=== PATIENT | male | born 1960 | race Caucasian/White ===

== ENCOUNTER 2018-08-21 05:41 | Emergency (ER) | payer MEDICAID, SELFPAY ==
[2018-08-21] VITALS (17 sets, daily range): BP systolic 145–173; BP diastolic 80–100; PULSE 57–75; RESP 12–23; TEMP 36.6; O2SAT 94–100
--- NOTE | 2018-08-21 05:54 | DI.CT_ITS ---
SYMPTOM/DIAGNOSIS: CHEST PAIN, HEMOPTYSIS PE CHEST CT: CT angiography was performed with multi slice acquisition and multi planar and 3D reconstruction. CT angiography of the chest was performed with a bolus infusion of 100 cc's of Omnipaque 350. Images obtained through the upper abdomen show unremarkable appearance of visualized portions of the liver, spleen, pancreas, adrenals and kidneys. No evidence of pulmonary embolic disease. No thoracic aortic aneurysm or dissection. No mediastinal or hilar adenopathy. Tracheobronchial tree appears intact except for slight peribronchial cuffing centrally. There is prominence of the septal lines, particularly in the lung bases. Scattered ground glass opacities are present, right greater than left, in the lung bases with a focus of possible consolidation seen posteriorly in the right lower lobe. The findings as described are suggestive of infectious process. No pleural effusion is seen. Underlying subpleural emphysema noted along with centrilobular mild emphysema. CONCLUSION: Nonspecific ground glass opacities but question consolidative opacities also present on the right. The findings may represent infectious process. Appropriate follow up studies requested. No evidence of pulmonary embolic disease.
--- NOTE | 2018-08-21 05:55 | W.ED.GENAD ---
Discharge Plan Disposition Patient Disposition: HOME Condition: Stable Discharge Details Chief Complaint: Chest Pain Clinical Impression: Chest pain, CAP (community acquired pneumonia) Primary Care Provider: Reji Waters ED Provider: Dennis Barajas Home Meds and New Rx's Prescriptions: New prednisone 20 mg tablet 60 mg PO DAILY 5 Days Qty: 15 RF: 0 levofloxacin 750 mg tablet 750 mg PO DAILY Qty: 6 RF: 0 Discharge Instructions Instructions: Community Acquired Pneumonia (ED) Additional Instructions: follow up with your primary care provider in a week especially if you are still symptomatic. You should discuss follow up imaging with your primary care provider of your chest if you feel you are more ill, have worsening trouble breathing or severe weakness return to the emergency department Medical Decision Making 57 yo male who denies chronic medical problems comes in with chief complaint of cough that started around 3am then developed anterior chest pain and states he had streaks of blood in his sputum. Went to bed feeling fine per pt. Denies recent travel or surgeries, no abd pain or fevers, denies hx of smoking and doesn't use drugs. He is HD stable, clera lungs on exam. will obtain lab work, heart score is 1, will send troponin. Given hemoptysis his wells score is moderate will obtain CTA to eval for pe vs pna. Normal vascular exam so doubt dissection and no tearing back pain pt's labs are unremarkable, remains hd stable. no pe on cta, has nonspecific peribronchial cuffing, grdounglass atentuation, and opacities in right lower lobe. Will tx as possible pna, states he now has had a cough for about a week. Did advise to f/u with pcp and have repeat imaging to make sure these findings to make sure these findings have resolved/not worsening and return precautions given Differential Diagnosis pna, pe, nstemi Medical Records Medical records reviewed: Yes I reviewed the patient's medical records. Imaging Data Radiologic Study: Attestation: I personally reviewed and interpreted this imaging study as follows: Imaging: CT Scan Radiologist's impression: 1. Nonspecific peribronchial cuffing. 2. Groundglass attenuation may reflect microatelectasis related to bronchial wall thickening.. 3. Septal thickening is present which suggests mild interstitial edema. 4. Ill-defined focal opacities noted on the right most prominent adjacent to the fissure in the superior segment of the right lower lobe. This may reflect an inflammatory focus. This measures up to approximately 2 cm . Lab Data Lab results reviewed: Yes I reviewed the patient's lab results. ECG Data Attestation: I personally reviewed and interpreted this ECG (s) as follows: Prior ECG tracings: not available for review Interpretation: sinus rhythm, rate of 60, pr 150, no acute st t wave ischemic changes HPI General Mode of arrival: ambulatory. Date/Time Provider Initiated Documentation: 08/21/18 05:44. Limitations to Documentation: no limitations. Information obtained by: patient. History of Present Illness 57 year old M presents to the emergency department with the chief complaint of cough, described as moderate, Quality is described as aching, and it has been constant. No relieving factors improve symptom(s), No exacerbating factors reported . Patient notes chest pain. Patient did receive the following treatments prior to arrival, none Related Data Home Medications Medication Instructions Recorded Confirmed levofloxacin 750 mg PO DAILY #6 tab 08/21/18 prednisone 60 mg PO DAILY 5 Days #15 tab 08/21/18 Previous Rx's Medication Instructions Recorded levofloxacin 750 mg PO DAILY #6 tab 08/21/18 prednisone 60 mg PO DAILY 5 Days #15 tab 08/21/18 Allergies Allergy/AdvReac Type Severity Reaction Status Date / Time aspirin Allergy Intermediate Hives Unverified 08/21/18 06:12 General Stated Complaint: Chest Pain MARIE: 2 Review of Systems Review of Systems All systems reviewed & are unremarkable except as noted in HPI and below Constitutional Denies chills, Denies fever(s) and Denies weakness Gastrointestinal Denies abdominal pain, Denies nausea and Denies vomiting Integumentary/Breasts Denies rash Neurologic Denies weakness [facility] Social History Smoking/Tobacco Use Status: Never Alcohol Intake: current Alcohol Intake frequency: 3 or more drinks per day Alcohol type: beer Drug use: Never Substance use type: does not use Do you feel safe at home: Yes Do you feel safe in your relationship?: Yes Exam Const General: no acute distress Orientation: alert HENMT Head: normal to inspection Ears: external ears normal General nose exam: external nose normal Mouth: moist mucous membranes Eyes General: appearance normal, both eyes and all related structures Neck Neck: normal visual inspection Resp Effort & Inspection: normal respiratory effort and able to speak in complete sentences Cardio Rate: regular rate Skin General skin exam: no rashes or lesions noted Neuro General: alert and oriented x3 Extrem General: normal to inspection Psych Mental Status: mental status grossly normal Course Vital Signs Temperature 36.6 C 08/21/18 05:47 Pulse 68 08/21/18 05:47 Respiratory Rate 08/21/18 05:47 Blood Pressure 158/96 H 08/21/18 05:47 Pulse Oximetry 97 08/21/18 05:47 Temperature 36.6 C 08/21/18 05:47 Temperature Source Skin 08/21/18 05:47 Pulse 68 08/21/18 05:47 Respiratory Rate 19 08/21/18 05:47 Blood Pressure 158/96 H 08/21/18 05:47 Blood Pressure Position Sitting 08/21/18 05:47 Pulse Oximetry 97 08/21/18 05:47 Oxygen Delivery Method Room Air 08/21/18 05:47 Oxygen Flow Rate 0 08/21/18 05:47
--- NOTE | 2018-08-21 05:58 | ED.GENADUL_ITS ---
Discharge Plan Disposition Patient Disposition: HOME Condition: Stable Discharge Details Chief Complaint: Chest Pain Clinical Impression: Chest pain, CAP (community acquired pneumonia) Primary Care Provider: Reji Waters ED Provider: Dennis Barajas Home Meds and New Rx's Prescriptions: New prednisone 20 mg tablet 60 mg PO DAILY 5 Days Qty: 15 RF: 0 levofloxacin 750 mg tablet 750 mg PO DAILY Qty: 6 RF: 0 Discharge Instructions Instructions: Community Acquired Pneumonia (ED) Additional Instructions: follow up with your primary care provider in a week especially if you are still symptomatic. You should discuss follow up imaging with your primary care provider of your chest if you feel you are more ill, have worsening trouble breathing or severe weakness return to the emergency department Medical Decision Making 57 yo male who denies chronic medical problems comes in with chief complaint of cough that started around 3am then developed anterior chest pain and states he had streaks of blood in his sputum. Went to bed feeling fine per pt. Denies recent travel or surgeries, no abd pain or fevers, denies hx of smoking and doesn't use drugs. He is HD stable, clera lungs on exam. will obtain lab work, heart score is 1, will send troponin. Given hemoptysis his wells score is moderate will obtain CTA to eval for pe vs pna. Normal vascular exam so doubt dissection and no tearing back pain pt's labs are unremarkable, remains hd stable. no pe on cta, has nonspecific peribronchial cuffing, grdounglass atentuation, and opacities in right lower lobe. Will tx as possible pna, states he now has had a cough for about a week. Did advise to f/u with pcp and have repeat imaging to make sure these findings to make sure these findings have resolved/not worsening and return precautions given Differential Diagnosis pna, pe, nstemi Medical Records Medical records reviewed: Yes I reviewed the patient's medical records. Imaging Data Radiologic Study: Attestation: I personally reviewed and interpreted this imaging study as follows: Imaging: CT Scan Radiologist's impression: 1. Nonspecific peribronchial cuffing. 2. Groundglass attenuation may reflect microatelectasis related to bronchial wall thickening.. 3. Septal thickening is present which suggests mild interstitial edema. 4. Ill-defined focal opacities noted on the right most prominent adjacent to the fissure in the superior segment of the right lower lobe. This may reflect an inflammatory focus. This measures up to approximately 2 cm . Lab Data Lab results reviewed: Yes I reviewed the patient's lab results. ECG Data Attestation: I personally reviewed and interpreted this ECG (s) as follows: Prior ECG tracings: not available for review Interpretation: sinus rhythm, rate of 60, pr 150, no acute st t wave ischemic changes HPI General Mode of arrival: ambulatory . Date/Time Provider Initiated Documentation: 08/21/18 05:44 . Limitations to Documentation: no limitations . Information obtained by: patient . History of Present Illness 57 year old M presents to the emergency department with the chief complaint of cough, described as moderate, Quality is described as aching, and it has been constant. No relieving factors improve symptom(s), No exacerbating factors reported . Patient notes chest pain. Patient did receive the following treatments prior to arrival, none Related Data Home Medications Medication Instructions Recorded Confirmed levofloxacin 750 mg PO DAILY #6 tab 08/21/18 prednisone 60 mg PO DAILY 5 Days #15 tab 08/21/18 Previous Rx's Medication Instructions Recorded levofloxacin 750 mg PO DAILY #6 tab 08/21/18 prednisone 60 mg PO DAILY 5 Days #15 tab 08/21/18 Allergies Allergy/AdvReac Type Severity Reaction Status Date / Time aspirin Allergy Intermediate Hives Unverified 08/21/18 06:12 General Stated Complaint: Chest Pain MARIE: 2 Review of Systems Review of Systems All systems reviewed & are unremarkable except as noted in HPI and below Constitutional Denies chills, Denies fever(s) and Denies weakness Gastrointestinal Denies abdominal pain, Denies nausea and Denies vomiting Integumentary/Breasts Denies rash Neurologic Denies weakness [facility] Social History Smoking/Tobacco Use Status: Never Alcohol Intake: current Alcohol Intake frequency: 3 or more drinks per day Alcohol type: beer Drug use: Never Substance use type: does not use Do you feel safe at home: Yes Do you feel safe in your relationship?: Yes Exam Const General: no acute distress Orientation: alert HENMT Head: normal to inspection Ears: external ears normal General nose exam: external nose normal Mouth: moist mucous membranes Eyes General: appearance normal, both eyes and all related structures Neck Neck: normal visual inspection Resp Effort & Inspection: normal respiratory effort and able to speak in complete sentences Cardio Rate: regular rate Skin General skin exam: no rashes or lesions noted Neuro General: alert and oriented x3 Extrem General: normal to inspection Psych Mental Status: mental status grossly normal Course Vital Signs Temperature 36.6 C 08/21/18 05:47 Pulse 68 08/21/18 05:47 Respiratory Rate 08/21/18 05:47 Blood Pressure 158/96 H 08/21/18 05:47 Pulse Oximetry 97 08/21/18 05:47 Temperature 36.6 C 08/21/18 05:47 Temperature Source Skin 08/21/18 05:47 Pulse 68 08/21/18 05:47 Respiratory Rate 19 08/21/18 05:47 Blood Pressure 158/96 H 08/21/18 05:47 Blood Pressure Position Sitting 08/21/18 05:47 Pulse Oximetry 97 08/21/18 05:47 Oxygen Delivery Method Room Air 08/21/18 05:47 Oxygen Flow Rate 0 08/21/18 05:47
[2018-08-21] MEDS: Ketorolac 15 MG/ML VIAL IVP (06:02)
[2018-08-21] MEDS: Normal Saline Flush 10 ML SYR IVP ×2 (06:02→06:35)
[2018-08-21 06:03] LABS: Abs Immature Grans 0.05 k/cumm (0.0-0.09); Absolute Basophil Count 0.04 k/cumm (0.0-0.2); Absolute Eosinophil Count 0.29 k/cumm (0.0-0.7); Absolute Lymphocyte Count 1.46 k/cumm (1.2-3.4); Absolute Monocyte Count 0.53 k/cumm (0.11-0.7); Absolute Neutrophil Count 4.78 k/cumm (1.2-6.7); Basophils % 0.6; Eosinophils % 4.1; HCT 42.5 % (40.0-50.0); HGB 14.3 g/dL (13.5-17.5); Immature Grans % 0.7; Lymphocytes % 20.4; Mean Corp. HGB Concentration 33.6 g/dL (32.0-36.0); Mean Corpuscular Hemoglobin 33.1 pg (27.0-33.0); Mean Corpuscular Volume 98.4 fL (80-95); Mean Platelet Volume 10.7 fL (8.0-11.0); Monocytes % 7.4; Neutrophils % 66.8; Platelet Count 256 x1000/uL (130-400); RBC 4.32 m/cumm (4.50-6.00); RBC Distribution Width 12.5 % (11.8-14.1); White Blood Cell Count 7.15 k/cumm (4.4-10.8)
[2018-08-21 06:17] LABS: INR 0.9 (0.9-1.1); PTT Activated 21.7 sec (21.0-31.4)
[2018-08-21 06:20] LABS: ALT 53 U/L (12-78); AST 35 U/L (15-37); Albumin 3.2 g/dL (3.4-5.0); Alkaline Phosphatase 74 U/L (46-116); Bilirubin, Total 0.6 mg/dL (0.2-1.0); Total Protein 6.8 g/dL (6.4-8.2)
[2018-08-21 06:28] LABS: ALT 55 U/L (12-78); AST 34 U/L (15-37); Albumin 3.2 g/dL (3.4-5.0); Alkaline Phosphatase 72 U/L (46-116); Anion Gap 8.3 mmol/L (3-11); BUN 16 mg/dL (7-18); Bilirubin, Total 0.5 mg/dL (0.2-1.0); CO2 25.7 mmol/L (21.0-32.0); CREATININE 1.07 mg/dL (0.70-1.30); Calcium 8.6 mg/dL (8.5-10.1); Chloride 106 mmol/L (98-107); Glucose 127 mg/dL (70-100); Magnesium 2.1 mg/dL (1.8-2.4); Sodium 140 mmol/L (136-145)
[2018-08-21 06:30] LABS: Bilirubin, Direct 0.12 mg/dL (0.00-0.20); Troponin I < 0.02 ng/mL (0.00-0.06)
[2018-08-21] MEDS: Omnipaque 350 MG/ML 100 ML BTL IJ (06:36)
--- NOTE | 2018-08-21 07:03 | DI.VRAD_ITS ---
EXAM: CT Angiography Chest With Contrast EXAM DATE/TIME: 08/21/2018 5:55 AM CLINICAL HISTORY: 57 years old, male; Pain and signs and symptoms; Type not specified; Patient HX: Chest pain with hemoptysis; Additional info: HX of RT lung pneumothorax in childhood/surgery TECHNIQUE: Imaging protocol: Axial computed tomographic angiography images of the chest with intravenous contrast using CT angiography protocol. Coronal and sagittal reformatted images were created and reviewed. 3D rendering: MIP reconstructed images were created and reviewed. Radiation optimization: All CT scans at this facility use at least one of these dose optimization techniques: automated exposure control; mA and/or kV adjustment per patient size (includes targeted exams where dose is matched to clinical indication); or iterative reconstruction. Contrast material: OMNI 350; Contrast volume: 100 ml; Contrast route: IV; COMPARISON: CR CHEST 2 VIEWS PA,LAT 05/08/2014 11:45 AM FINDINGS: Pulmonary arteries: There is no evidence for PE. Aorta: Normal. No aortic aneurysm. No aortic dissection. Lungs: Peribronchial cuffing is present which is nonspecific, and which may reflect acute or chronic bronchial inflammation. Alternatively, this may reflect an element of reactive airways disease. Groundglass attenuation may reflect microatelectasis related to bronchial wall thickening.. Septal thickening is present which suggests mild interstitial edema. Ill-defined focal opacities noted on the right most prominent adjacent to the fissure in the superior segment of the right lower lobe. This may reflect an inflammatory focus. This measures up to approximately 2 cm . Pleural space: Normal. No pneumothorax. No pleural effusion. Heart: Normal. No cardiomegaly. No pericardial effusion. Lymph nodes: Unremarkable. No enlarged lymph nodes. Bones/joints: Unremarkable. No acute fracture. Soft tissues: Unremarkable. IMPRESSION: 1. Nonspecific peribronchial cuffing. 2. Groundglass attenuation may reflect microatelectasis related to bronchial wall thickening.. 3. Septal thickening is present which suggests mild interstitial edema. 4. Ill-defined focal opacities noted on the right most prominent adjacent to the fissure in the superior segment of the right lower lobe. This may reflect an inflammatory focus. This measures up to approximately 2 cm . Dictated and Authenticated by: Emmanuel Alegria MD. Ordering:LUI Collins MD
== END 2018-08-21 07:27 | disposition home or self-care (01) ==
LOC: ER 07:29
PROVIDERS: Emergency Provider Emergency Medicine; PCP General Practice
DX: R07.9 Chest pain, unspecified (principal); J18.9 Pneumonia, unspecified organism; R05 Cough; R04.2 Hemoptysis
CPT/HCPCS: 36415; 71275; 80053; 80076; 93005; 96374; 99285; 83735; 84484; 85025; 85610; 85730; 93010; 99284; J1885; J3490

== ENCOUNTER 2019-06-22 09:10 | Emergency (ER) | payer MEDICAID, SELFPAY ==
[2019-06-22 09:15] VITALS: BP 117/91; PULSE 74; RESP 18; TEMP 36.2; O2SAT 97
--- NOTE | 2019-06-22 09:30 | DI.US_ITS ---
EXAM: US UPPER EXTREMITY VENOUS LT CLINICAL HISTORY: pain, swelling. r/o DVT. TECHNIQUE: Ultrasound examination of the left upper extremity venous system(s) is performed using gr ayscale, color-flow, and spectral Doppler analysis. COMPARISON: No exams were available for comparison FINDINGS: The left internal jugular, axillary, subclavian, cephalic, basilic, and brachial veins are patent wit hout evidence of thrombosis. IMPRESSION: No DVT. Findings were discussed with the emergency department on the date of the examination. DATA REPOSITORY:
--- NOTE | 2019-06-22 09:30 | DI.RAD_ITS ---
EXAM: XR ELBOW LT COMPLETE CLINICAL HISTORY: pain, medial epicondyl. TECHNIQUE: 2D digital imaging was performed. COMPARISON: No exams were available for comparison FINDINGS: BONES: No acute fracture is present. No bony destructive lesion is seen. There is a tiny well cortica eric density adjacent to the medial epicondyle likely reflecting old injury. JOINTS: The elbow is normally aligned. No joint effusion is seen. SOFT TISSUE: Normal. IMPRESSION: Unremarkable radiographs of the left elbow. DATA REPOSITORY: RADIATION DOSE DELIVERED:
--- NOTE | 2019-06-22 09:47 | ED.GENADUL_ITS ---
Discharge Plan Disposition Patient Disposition: HOME Condition: Stable Discharge Details Chief Complaint: Orthopedic Clinical Impression: Tendinitis, Epicondylitis elbow, medial Primary Care Provider: None,None ED Provider: Fariba Woodruff Home Meds and New Rx's Prescriptions: No Action ibuprofen 200 mg Tablet 600 mg PO Q6H PRNRF: 0 Discharge Instructions Instructions: Tendinitis (ED) Additional Instructions: Rest. Activities as tolerated. Elevate injury to prevent swelling. Ice massage to the area of discomfort for 15 min. 3-5 times daily. Use sling for 3 to 5 days. Consider forearm strap thereafter Motrin every 8 hours with food or Tylenol every 6 hours for soreness if needed over the counter for comfort. Followup with orthopedic doctor as discussed if not improving in one week. Follow-up with physical therapist locally Return for any worsening or concerns sooner if needed. Stand Alone Forms: Physical Therapy Referral Referrals: Aguilar Noble MD [ [facility] STAFF PHYSICIAN] - Discharge Data Discharge Date/Time-TO BE ENTERED AT DEPARTURE: 06/22/19 12:32 Medical Decision Making 58-year-old patient presenting to the emergency room with complaints of left arm pain. Patient reports 2 to 3 days of left arm pain which is difficult to tolerate. Patient denies a specific injury or trauma. No inciting events. 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 Patient denies any recent use however he will be required pain in the upcoming months and is quite concerned with developing pain for the last few days which is difficult to range his arm he is also reporting swelling present. Denies any numbness, tingling or weakness. Denies any neck pain. No other concerns or complaints at this time. On exam patient does have medial arm pain centered around the medial epicondyles. He does have tendon pain with palpation through the forearm. Pain with flexion and extension. Swelling is present. Given patient's moderate tenderness will check x-ray as well as ultrasound to be sure there is no associated DVT however I suspect tendinitis at this time. Ultrasound negative for DVT. X-ray no acute x-ray changes noted. Given patient's clinical presentation I feel medial epicondylitis associated with tendinitis is likely the etiology of his pain. Will recommend forearm strapping, rice, physical therapy and orthopedic follow-up if not improving with conservative treatments. Patient reports his understanding and agrees with plan of care. The patient was stable and requested discharge. Prior to discharge, my usual and customary return precautions were reviewed with the patient - this included follow-up instructions and reasons to return to the Emergency Department if conditions worsens, does not improve as expected, or other new concerns arise. HPI General Date/Time Provider Initiated Documentation: 06/22/19 09:34 . HPI Narrative: This is a 58-year-old patient presenting to the emergency room for complaints of left arm pain. Patient reports onset of pain 2 days ago. Patient reports obvious swelling noted to the medial aspect of the arm. Patient reports mid bicep pain extending through the elbow into the forearm. Patient reports significant pain with any attempt of range of motion. Patient does report a history of similar arm pain approximately 1 year ago. 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 Patient reports symptoms had improved and he reported no recent activity to incite arm pain. Patient denies numbness, tingling or weakness. Limited range of motion due to pain. Patient denies headache, changes from his baseline, chest pain or other concerns at this time. Related Data Home Medications Medication Instructions Recorded Confirmed ibuprofen 600 mg PO Q6H PRN 06/22/19 06/22/19 Allergies Allergy/AdvReac Type Severity Reaction Status Date / Time aspirin Allergy Intermediate Hives Unverified 06/22/19 09:18 General Stated Complaint: Orthopedic MARIE: 4 Review of Systems All systems reviewed & are unremarkable except as noted in HPI and below Constitutional Constitutional: Denies chills, Denies fatigue, Denies fever(s), Denies headache(s) and Denies malaise ENT Ears, Nose, Mouth, and Throat: Denies headache(s) Musculoskeletal Musculoskeletal: Denies abnormal gait, Denies deformity, Reports limited range of motion (Due to pain), Denies numbness, Denies tingling and Reports other (Left arm pain and swelling) Neurologic Neurologic: Denies abnormal gait, Denies headache(s), Denies numbness and Denies tingling Endocrine Endocrine: Denies fatigue [facility] Social History Smoking/Tobacco Use Status: Never Alcohol Intake: current Alcohol Intake frequency: 3 or more drinks per day Alcohol type: beer Drug use: Never Substance use type: does not use Do you feel safe at home: Yes Do you feel safe in your relationship?: Yes Exam Narrative Exam Narrative: CONST: Healthy appearing patient, in no acute distress. Well hydrated. Alert and oriented. NECK: Normal visual inspection. FROM. Trachea midline. No Midline tenderness. MUSCULOSKELETAL: Normal Gait. FROM of all extremities. left arm: No shoulder pain with palpation. Medial forearm pain with palpation without obvious swelling. Moderate medial epicondyle tenderness with palpation. Pain with supination pronation of the elbow. No lateral epicondyle tenderness, no olecranon tenderness. Moderate medial forearm tenderness with palpation, fullness noted. No obvious skin changes. Mild swelling present. Pain with flexion and extension of wrist. No focal tenderness of the wrist. No tenderness throughout the hand. Pulses intact. Distal neurovascularly intact. No swelling in the digits. SKIN: Normal. Dry. No rashes. NEURO: Alert and awake. Speech clear. PSYCH: Normal affect. Cooperative. Course Vital Signs Vital signs: Vital Signs Temperature 36.2 C L 06/22/19 09:15 Pulse 74 06/22/19 09:15 Respiratory Rate 18 06/22/19 09:15 Blood Pressure 117/91 H 06/22/19 09:15 Pulse Oximetry 97 06/22/19 09:15 Temperature 36.2 C L 06/22/19 09:15 Temperature Source Skin 06/22/19 09:15 Pulse 74 06/22/19 09:15 Respiratory Rate 18 06/22/19 09:15 Respiratory Effort Non-Labored 06/22/19 09:19 Blood Pressure 117/91 H 06/22/19 09:15 Blood Pressure Position Sitting 06/22/19 09:15 Pulse Oximetry 97 06/22/19 09:15 Oxygen Delivery Method Room Air 06/22/19 09:15 Oxygen Flow Rate 0 06/22/19 09:15 Pain Level 8 06/22/19 09:15
== END 2019-06-22 12:32 | disposition home or self-care (01) ==
PROVIDERS: Emergency Provider Physician Assistant
DX: M77.02 Medial epicondylitis, left elbow (principal); M77.9 Enthesopathy, unspecified
CPT/HCPCS: 99285; 73080; 93971; 99284

== ENCOUNTER 2019-10-20 17:23 | Emergency (ER) | payer MEDICAID, SELFPAY ==
[2019-10-20 17:27] VITALS: BP 166/93; PULSE 84; RESP 16; TEMP 36.5; O2SAT 98
--- NOTE | 2019-10-20 17:34 | W.ED.GENAD ---
Discharge Plan Disposition Patient Disposition: HOME Condition: Stable Discharge Details Chief Complaint: RashLesion Clinical Impression: Tick bite of back Primary Care Provider: None,None ED Provider: Yvonne Dee Home Meds and New Rx's Prescriptions: Continued ibuprofen 200 mg Tablet 600 mg PO Q6H PRNRF: 0 Discharge Instructions Instructions: Tick Bite (ED) Additional Instructions: Wash the wound with soap and water. You can apply topical antibiotic ointment once daily for the next 1 to 2 days. If you notice any increase in pain, redness or swelling around the site, apply topical antibiotic ointment twice daily. Alternate tylenol and motrin as needed and directed for pain. You will receive a call from care management regarding a follow-up appointment with your primary care doctor to establish care and for reevaluation. Return to the emergency department if you develop any worsening or concerning symptoms such as fever, bull's-eye rash, chills, body aches or any other concerns. Discharge Data Discharge Date/Time-TO BE ENTERED AT DEPARTURE: 10/20/19 18:00 Discharge Physician: Yvonne Dee Medical Decision Making 59-year-old male presents for evaluation after a friend removed a large tick from his back 45 minutes ago. Patient is unsure of how long tick was present. It appears possibly consistent with a dog tick and is engorged. Tick is fully intact and alive and in jar. Patient appears nontoxic without fever and no report of bull's-eye rash or evidence of erythema migrans on exam. Although tick appears possibly more consistent with a dog tick, will cover with doxycycline for prophylaxis. Advised on proper wound care. Area was cleaned and covered with bacitracin and Band-Aid. Patient placed on care management list to arrange for follow-up appointment with her primary care doctor to establish care and for reevaluation. Medical Records Medical records reviewed: Yes I reviewed the patient's medical records. HPI General Mode of arrival: ambulatory. Date/Time Provider Initiated Documentation: 10/20/19 17:34. Limitations to Documentation: no limitations. Information obtained by: patient. HPI Narrative: Patient is a 59-year-old male who presents the ED after a friend removed a large tick from his back today approximately 45 minutes ago. That tick is alive and intact brought in a jar to the ED. Patient states he is unsure of how long the tick was present. Patient did not have any symptoms on his back and denies any itching or pain. He denies any fever, chills, body aches, bull's-eye rash. Related Data Home Medications Medication Instructions Recorded Confirmed ibuprofen 600 mg PO Q6H PRN 06/22/19 06/22/19 Allergies Allergy/AdvReac Type Severity Reaction Status Date / Time aspirin Allergy Intermediate Hives Unverified 10/20/19 17:30 General Stated Complaint: RashLesion MARIE: 4 Review of Systems All systems reviewed & are unremarkable except as noted in HPI and below Constitutional Constitutional: Reports as per HPI, Denies chills and Denies fever(s) Eyes Eyes: Denies blurry vision ENT Ears, Nose, Mouth, and Throat: Denies dizziness, Denies sore throat and Denies throat swelling Cardiovascular Cardiovascular: Denies chest pain and Denies dyspnea Respiratory Respiratory: Denies cough and Denies dyspnea Gastrointestinal Gastrointestinal: Denies abdominal pain, Denies diarrhea and Denies vomiting Genitourinary Genitourinary: Denies hematuria and Denies dysuria Musculoskeletal Musculoskeletal: Denies back pain and Denies numbness Integumentary/Breasts Skin/Breast: Reports lesions and Denies rash Neurologic Neurologic: Denies dizziness, Denies localized weakness and Denies numbness Allergic/Immunologic Allergic/Immunologic: Denies throat swelling [facility] Social History Smoking/Tobacco Use Status: Never Alcohol Intake: current Alcohol Intake frequency: 3 or more drinks per day Alcohol type: beer Drug use: Never Substance use type: does not use Do you feel safe at home: Yes Do you feel safe in your relationship?: Yes Exam Const General: cooperative, healthy appearing and no acute distress [facility] Head: normal to inspection Mouth: oral mucosae normal Eyes General: appearance normal, both eyes and all related structures Neck Neck: normal visual inspection Resp Effort & Inspection: normal respiratory effort and able to speak in complete sentences Cardio Rate: regular rate Back/Spine/Pelvis Back/spine/pelvis image: 1. 3 x 3 mm papule with a 4mm area of surrounding erythema. Does not appear consistent with bull's-eye rash. No induration or fluctuance, drainage or bleeding. No tenderness to palpation or ecchymosis. Skin General skin exam: no rashes or lesions noted Neuro General: patient alert, patient awake and patient oriented x3 Motor: muscle tone normal throughout Extrem General: normal to inspection and full ROM Psych Appearance: grossly normal Affect: normal affect Course Vital Signs Vital signs: Vital Signs Temperature 97.7 F 10/20/19 17:27 Pulse 84 10/20/19 17:27 Respiratory Rate 16 10/20/19 17:27 Blood Pressure 166/93 H 10/20/19 17:27 Pulse Oximetry 98 10/20/19 17:27 Temperature 97.7 F 10/20/19 17:27 Temperature Source Skin 10/20/19 17:27 Pulse 84 10/20/19 17:27 Respiratory Rate 16 10/20/19 17:27 Respiratory Effort Non-Labored 10/20/19 17:27 Blood Pressure 166/93 H 10/20/19 17:27 Blood Pressure Position Sitting 10/20/19 17:27 Pulse Oximetry 98 10/20/19 17:27 Oxygen Delivery Method Room Air 10/20/19 17:27 Oxygen Flow Rate 0 10/20/19 17:27 Pain Level 0 10/20/19 17:27
[2019-10-20] MEDS: Doxycycline Hyclate 100 MG CAP 200 MG PO (17:49)
== END 2019-10-20 18:00 | disposition home or self-care (01) ==
LOC: ER 17:49
PROVIDERS: Emergency Provider Physician Assistant
DX: S20.462A Insect bite (nonvenomous) of left back wall of thorax, initial encounter (principal); W57.XXXA Bitten or stung by nonvenomous insect and other nonvenomous arthropods, initial encounter
CPT/HCPCS: 99283

== ENCOUNTER 2020-03-11 09:23 | Emergency (ER) | payer MEDICAID, SELFPAY ==
[2020-03-11 09:31] VITALS: BP 164/109; PULSE 90; RESP 20; TEMP 36.9; O2SAT 94
--- NOTE | 2020-03-11 09:32 | ED.GENADUL_ITS ---
Discharge Plan Disposition Patient Disposition: HOME Condition: Stable Discharge Details Clinical Impression: Sprain of forearm, left, Fall from ladder Primary Care Provider: None,None ED Provider: Rachel Limon Home Meds and New Rx's Prescriptions: New oxycodone-acetaminophen [Endocet] 5-325 mg tablet 1 tab PO Q6H PRN (Reason: pain) Qty: 7 RF: 0 No Action ibuprofen 200 mg Tablet 600 mg PO Q6H PRNRF: 0 Discharge Instructions Instructions: Fall Prevention (ED), Wrist Sprain (ED) Additional Instructions: Follow up with primary care provider in 3-5 days. Return to ED sooner if any worsening or concerns. Increase oral fluids. Please take Tylenol or Ibuprofen with food every 4-6 hours as needed for pain and swelling. Do not take extra Tylenol while taking the Percocet. If continued pain after 1 to 2 weeks you may follow-up with orthopedics if needed. Wear splint for comfort, rest, ice, compression, elevation. Stand Alone Forms: Work Release Referrals: Edward Waters MD [ [facility] STAFF PHYSICIAN] - Medical Decision Making 59-year-old male presents to the ER with left wrist and left lower leg pain. Patient states that he was doing some plastering work and fell approximately 8 feet from a ladder landing on a concrete floor. He landed on his left arm and left leg. He denies any head injuries no loss of consciousness denies any neck or back pain no chest abdominal pain. She does have 2 abrasions noted to the medial aspect of the left wrist, radial pulses intact distal CMS intact. He has an abrasion noted to his left anterior ruiz. No other injuries noted on initial exam. She is allergic to aspirin. EXAM: XR FOREARM LT CLINICAL HISTORY: Fall TECHNIQUE: COMPARISON: CR XR WRIST LT COMPLETE from 03/11/2020 FINDINGS: Two views of the forearm and three views of the wrist were obtained. There is no evidence of a fracture or dislocation. Patient was placed in a universal wrist splint and a sling was given prescription for Percocet as needed for pain. Instructed on rest ice compression elevation discussed strict return instructions. Patient verbalized understanding. Instructed to follow-up with orthopedics in 1 to 2 weeks if continued pain. Patient was given 2 mg of morphine IV prior to discharge. HPI General Mode of arrival: ambulatory . Date/Time Provider Initiated Documentation: 03/11/20 09:30 . Limitations to Documentation: no limitations . Information obtained by: patient . HPI Narrative: 59-year-old male presents to the ER with left wrist and left lower leg pain. Patient states that he was doing some plastering work and fell approximately 8 feet from a ladder landing on a concrete floor. He landed on his left arm and left leg. He denies any head injuries no loss of consciousness denies any neck or back pain no chest abdominal pain. She does have 2 abrasions noted to the medial aspect of the left wrist, radial pulses intact distal CMS intact. He has an abrasion noted to his left anterior ruiz. No other injuries noted on initial exam. She is allergic to aspirin. Related Data Home Medications Medication Instructions Recorded Confirmed ibuprofen 600 mg PO Q6H PRN 06/22/19 03/11/20 oxycodone-acetaminophen [Endocet] 1 tab PO Q6H PRN #7 tab 03/11/20 Previous Rx's Medication Instructions Recorded oxycodone-acetaminophen [Endocet] 1 tab PO Q6H PRN #7 tab 03/11/20 Allergies Allergy/AdvReac Type Severity Reaction Status Date / Time aspirin Allergy Intermediate Hives Unverified 10/20/19 17:30 General MARIE: 4 Review of Systems Narrative: Constitutional: Negative for weight loss, alert and oriented, well groomed, normal body habitus, appears uncomfortable. HEENT: Denies headaches, blurry vision, nasal discharge, sore throat, trouble swallowing. Chest: Denies chest pain, palpitations, irregular rhythm, hypertension. Respiratory: Denies Shortness of breath, cough, hemoptysis. GI: Denies abdominal pain, nausea, vomiting, diarrhea, constipation. Musculoskeletal: Left wrist and left lower extremity pain. : Denies dysuria, hematuria, flank pain, rectal bleeding. Neuro: Denies dizziness, blurry vision, weakness, syncope, headache or facial numbness. Hematologic: Denies easy bruising, intolerance to heat or cold, hair loss. [facility] Surgical History (Updated 03/11/20 @ 09:34 by Jenae Perera) Hx of appendectomy S/P lobectomy of lung Social History Smoking/Tobacco Use Status: Never Smoking risk assessment performed?: Yes Alcohol Intake: current Alcohol Intake frequency: 3 or more drinks per day Alcohol type: beer Drug use: Never Substance use type: does not use Do you feel safe at home: Yes Do you feel safe in your relationship?: Yes Exam Narrative Exam Narrative: Constitutional: Alert and oriented x3. Appears stated age. Normal body habitus. He is slightly diaphoretic upon arrival. Head: Normocephalic, no signs of trauma. Eyes: Pupils PERRLA, Red reflex noted, EOM's intact. Eyelids symmetrical without lesions, discharge, or swelling. ENT: Bilateral TM's WNL, External ear normal to inspection, no mastoid TTP, swelling, or erythema, Nasal turbinates WNL, no nasal discharge. Normal dentition, Posterior pharynx WNL, no exudate. Chest: RRR, Normal S1, S2, distal pulses intact. Nontender to palpation. Resp: Lungs clear to auscultation bilaterally, no wheezes, rales, or rhonchi. Abdomen: Soft nondistended nontender to palpation all 4 quadrants. Musculoskeletal: Normal gait, he is complaining of left wrist pain there is 2 abrasions noted medial aspect, 2 superficial abrasions noted proximally in the left inner forearm, he is complaining of left wrist pain. No midline C, T, L- spine tenderness with palpation. No crepitus no step-off. Skin: Abrasion and swelling noted to the left anterior ruiz. Capillary refill less than 2 sec. Neurologic: Cranial nerves II-XII intact. Alert and oriented x 3. DTR's intact. Hematologic/Lymphatic: No ecchymosis, no lymphadenopathy.
[2020-03-11] MEDS: oxyCODONE 5 mg/Acetaminophen 325 mg TAB 1 TAB PO (09:38)
[2020-03-11] MEDS: Ondansetron O.D.T. 4 MG TABEF PO (09:39)
--- NOTE | 2020-03-11 10:01 | DI.RAD_ITS ---
EXAM: XR TIB/FIB LT CLINICAL HISTORY: fall, r/o fracture TECHNIQUE: COMPARISON: No exams were available for comparison FINDINGS: Three views were obtained. There is no evidence of acute fracture or dislocation. IMPRESSION: RADIATION DOSE DELIVERED: Total DLP
--- NOTE | 2020-03-11 10:01 | DI.RAD_ITS ---
EXAM: XR FOREARM LT CLINICAL HISTORY: Fall TECHNIQUE: COMPARISON: CR XR WRIST LT COMPLETE from 03/11/2020 FINDINGS: Two views of the forearm and three views of the wrist were obtained. There is no evidence of a fract ure or dislocation. IMPRESSION: RADIATION DOSE DELIVERED: Total DLP
[2020-03-11 11:25] VITALS: BP 144/72; PULSE 76; RESP 20; TEMP 36.6; O2SAT 95
== END 2020-03-11 11:24 | disposition home or self-care (01) ==
PROVIDERS: Emergency Provider Registered Nurse Emergency
DX: S63.592A Other specified sprain of left wrist, initial encounter (principal); S80.812A Abrasion, left lower leg, initial encounter; S50.812A Abrasion of left forearm, initial encounter; W11.XXXA Fall on and from ladder, initial encounter
CPT/HCPCS: 29125; 96374; 99284; 73090; 73110; 73590

== ENCOUNTER 2020-08-12 08:50 | Emergency (ER) | payer MEDICAID, SELFPAY ==
[2020-08-12 09:00] VITALS: BP 182/95; PULSE 78; RESP 22; TEMP 36.1; O2SAT 99
[2020-08-12] MEDS: HYDROcodone 5/Acetaminophen 325 TAB PO (09:40)
--- NOTE | 2020-08-12 09:56 | DI.RAD_ITS ---
Exam(s) XR FOOT LT COMPLETE XR ANKLE LT COMPLETE EXAM: XR ANKLE LT COMPLETE and XR foot LT complete CLINICAL HISTORY: dropped transmission on foot, r/o fx TECHNIQUE: 2D digital imaging was performed. COMPARISON: CR LEFT HEEL (OS [facility]) from 09/05/2015 CR LEFT ANKLE COMPLETE from 09/05/2015 CR XR TIB/FIB LT from 03/11/2020 FINDINGS: BONES: No acute fracture is present. No bony destructive lesion is seen. There is an old fracture de formity of the 3rd metatarsal. There is an well corticated osseous density at the proximal 5th metat arsal which appears old. There is a large plantar calcaneal spur. JOINTS:The ankle mortise is normally aligned. Mild degenerative changes are seen in the foot. SOFT TISSUE: There is diffuse soft tissue swelling of the foot. No radiopaque foreign bodies are see n in the soft tissues. IMPRESSION: 1. No acute fracture or dislocation. 2. Diffuse soft tissue swelling of the foot. 3. Results of this exam have been verbally communicated with provider. DATA REPOSITORY: RADIATION DOSE DELIVERED:
--- NOTE | 2020-08-12 10:27 | ED.GENADUL_ITS ---
Discharge Plan Disposition Patient Disposition: HOME Condition: Stable Discharge Details Clinical Impression: Contusion of left foot, Blister of foot Primary Care Provider: None,None ED Provider: Yvonne Dee Home Meds and New Rx's Prescriptions: Continued ibuprofen 200 mg Tablet 600 mg PO Q6H PRNRF: 0 Discharge Instructions Instructions: Foot Contusion (ED), Blister (ED) Additional Instructions: Rest, ice, and elevate the affected area as much as possible. You can remove the dressing and Tawanda wrap in the next 1 to 2 days but reapply the tube gauze and Tawanda wrap to help reduce the swelling. Wear the tube gauze and tawanda wrap for the next 1-2 weeks as much as possible to help with swelling. If the blisters open, apply topical antibiotic ointment and cover with a nonadherent dressing. Alternate tylenol and motrin as needed and directed for pain. Take the tramadol for pain not relieved with Tylenol or ibuprofen. You have been placed on our care management list to help arrange for a follow-up appointment with a primary care doctor to establish care and for reevaluation of your left foot and your blood pressure within the next 1-2 weeks. Return immediately to the emergency department if you develop any worsening or new concerning symptoms for fever, worsening pain, redness or swelling. Discharge Data Discharge Physician: Yvonne Dee Medical Decision Making 59-year-old male with a history of obesity presents for left foot pain, swelling and bruising for the past few days after dropping a truck transmission on his foot. He has ecchymosis noted to his left anterior ankle and left dorsal foot and near the base of his toes. There are 3 reddish-orange blisters approximately 2 x 2 cm in diameter on the dorsum of his foot. There is no surrounding induration, fluctuance or drainage. He is neurovascularly intact. There is no deformity. Left knee and ankle nontender. Patient referred for left foot and ankle x-rays and negative for acute findings. Case discussed with Dr. Gómez who recommended keeping the blisters intact and covering with thick cotton padding and Tawanda wrap. Tube gauze, cotton padding and Tawanda wrap applied to left foot. Orthopedic shoe applied. Patient's blood pressure was noted to be high while here in the emergency department, highest at 189/111. He denies any complaints of headache or chest pain. He states he did not have a primary care doctor. He is advised to watch his sodium intake, and has been placed on care management list to arrange for a follow-up appointment with the primary care doctor to establish care, recheck his blood pressure and his left foot. Usual and customary return precautions given prior to discharge. Medical Records Medical records reviewed: Yes I reviewed the patient's medical records. Imaging Data Radiologic Study: Radiologist's impression: XR ANKLE LT COMPLETE and XR foot LT complete CLINICAL HISTORY: dropped transmission on foot, r/o fx TECHNIQUE: 2D digital imaging was performed. COMPARISON: CR LEFT HEEL (OS [facility]) from 09/05/2015 CR LEFT ANKLE COMPLETE from 09/05/2015 CR XR TIB/FIB LT from 03/11/2020 FINDINGS: BONES: No acute fracture is present. No bony destructive lesion is seen. There is an old fracture deformity of the 3rd metatarsal. There is an well corticated osseous density at the proximal 5th metatarsal which appears old. There is a large plantar calcaneal spur. JOINTS:The ankle mortise is normally aligned. Mild degenerative changes are seen in the foot. SOFT TISSUE: There is diffuse soft tissue swelling of the foot. No radiopaque foreign bodies are seen in the soft tissues. IMPRESSION: 1. No acute fracture or dislocation. 2. Diffuse soft tissue swelling of the foot. 3. Results of this exam have been verbally communicated with provider. HPI General Mode of arrival: ambulatory . Date/Time Provider Initiated Documentation: 08/12/20 09:14 . Limitations to Documentation: no limitations . Information obtained by: patient . HPI Narrative: Patient is a 59-year-old male who presents with left foot pain and bruising after dropping a truck transmission on his foot a few days ago. Patient states he has had bruising and swelling since then and then developed blisters yesterday. He denies any pain or injury to his left hip, knee or ankle. He has not taken anything for pain today. Related Data Home Medications Medication Instructions Recorded Confirmed ibuprofen 600 mg PO Q6H PRN 06/22/19 08/12/20 Allergies Allergy/AdvReac Type Severity Reaction Status Date / Time aspirin Allergy Intermediate Hives Unverified 10/20/19 17:30 General Stated Complaint: Orthopedic MARIE: 4 Review of Systems All systems reviewed & are unremarkable except as noted in HPI and below PFSH Medical History (Updated 08/12/20 @ 11:08 by Yvonne Dee DO) Obesity Surgical History (Updated 03/11/20 @ 09:34 by Jenae Perera) Hx of appendectomy S/P lobectomy of lung Social History Smoking/Tobacco Use Status: Never Smoking risk assessment performed?: Yes Alcohol Intake: current Alcohol Intake frequency: 3 or more drinks per day Alcohol type: beer Drug use: Never Substance use type: does not use Do you feel safe at home: Yes Do you feel safe in your relationship?: Yes Exam Const General: cooperative, healthy appearing and no acute distress HENMT Head: normal to inspection Mouth: oral mucosae normal Eyes General: appearance normal, both eyes and all related structures Neck Neck: normal visual inspection Resp Effort & Inspection: normal respiratory effort and able to speak in complete sentences Cardio Rate: regular rate Skin General skin exam: no rashes or lesions noted Neuro General: patient alert, patient awake and patient oriented x3 Motor: muscle tone normal throughout Extrem Ankle/foot/toe images: 1. Ecchymosis 2. Scattered ecchymosis, worse near base of toes. 3. Ecchymosis noted around the base of the toes. 4. 3 blisters noted, approximately 2 x 2 cm each in diameter. They are raised and fluctuant. They are reddish orange in color. Psych Appearance: grossly normal Affect: normal affect Course Vital Signs Vital signs: Vital Signs Temperature 97.0 F L 08/12/20 09:00 Pulse 78 08/12/20 09:00 Respiratory Rate 22 08/12/20 09:00 Blood Pressure 182/95 H 08/12/20 09:00 Pulse Oximetry 99 08/12/20 09:00 Temperature 97.0 F L 08/12/20 09:00 Temperature Source Skin 08/12/20 09:00 Pulse 78 08/12/20 09:00 Respiratory Rate 22 08/12/20 09:00 Respiratory Effort Non-Labored 08/12/20 09:06 Blood Pressure 182/95 H 08/12/20 09:00 Blood Pressure Position Sitting 08/12/20 09:00 Pulse Oximetry 99 08/12/20 09:00 Oxygen Delivery Method Room Air 08/12/20 09:00 Oxygen Flow Rate 0 08/12/20 09:00 Pain Level 7 08/12/20 09:40 Procedures Orthopedic Splinting/Casting Injury #1: Side: left Lower Extremity Injury Location: foot Lower Extremity Immobilizer: post-op shoe and Tawanda wrap Additional Comments: tube gauze and thick cotton padding applied to L foot and covered with tawanda wrap and post op shoe
[2020-08-12 10:58] VITALS: BP 189/111; PULSE 68; RESP 20; TEMP 36.9; O2SAT 99
--- NOTE | 2020-08-12 19:25 | NUR.NOTE ---
Referral to Care Management to get established with pcp for B.P recheck and foot issue.Nursing Note:
== END 2020-08-12 11:42 | disposition home or self-care (01) ==
PROVIDERS: Emergency Provider Physician Assistant
DX: S90.32XA Contusion of left foot, initial encounter (principal); W20.8XXA Other cause of strike by thrown, projected or falling object, initial encounter
CPT/HCPCS: 99283; 73610; 73630

== ENCOUNTER 2020-08-22 03:23 | Outpatient (CLI) | payer MEDICAID, SELFPAY ==
[2020-08-22 08:34] LABS: ALT 67 U/L (16-63); AST 47 U/L (15-37); Albumin 3.5 g/dL (3.4-5.0); Alkaline Phosphatase 78 U/L (46-116); Anion Gap 10.2 mmol/L (3-11); BUN 15 mg/dL (7-18); Bilirubin, Total 0.7 mg/dL (0.2-1.0); CO2 25.8 mmol/L (21.0-32.0); CREATININE 1.1 mg/dL (0.70-1.30); Calcium 8.8 mg/dL (8.5-10.1); Calculated LDL 140 mg/dL (<100); Chloride 107 mmol/L (98-107); Cholesterol 216 mg/dL (<200); Glucose 114 mg/dL (74-106); HDL Cholesterol 47 mg/dL (40-60); Potassium 4.5 mmol/L (3.5-5.1); Sodium 143 mmol/L (136-145); Total Protein 7.1 g/dL (6.4-8.2); Triglyceride 145 mg/dL (<150)
== END 2020-08-22 03:24 | disposition home or self-care (01) ==
LOC: LBO 03:23
PROVIDERS: PCP Nurse Practitioner Family; Visit Provider Nurse Practitioner Family
DX: I10 Essential (primary) hypertension (principal)
CPT/HCPCS: 36415; 80053; 80061

== ENCOUNTER 2021-08-10 02:47 | Outpatient (CLI) | payer MEDICAID, SELFPAY ==
[2021-08-11 10:31] LABS: HIV-1/2 Ag & Ab Screen Negative (Negative)
== END 2021-08-10 02:48 | disposition home or self-care (01) ==
LOC: LOS 02:48
PROVIDERS: PCP Nurse Practitioner Family; Visit Provider Nurse Practitioner Family
DX: Z13.1 Encounter for screening for diabetes mellitus (principal); Z11.4 Encounter for screening for human immunodeficiency virus [HIV]
CPT/HCPCS: 36415; 87389; 83036

== ENCOUNTER 2021-08-17 08:18 | Outpatient (CLI) | payer MEDICAID, SELFPAY ==
--- NOTE | 2021-08-17 08:15 | RT.EKG_ITS ---
APPROVED REPORT Exam: Resting ECG Reason for Exam: chest pain Patient Location: O HR:97 bpm ECG Measurements Heart Rate 97 AXIS IN [id number] P [id number] QRSd 81 QRS 3 QT 318 T 21 QTc 423 Conclusion Atrial fibrillation...V-rate 83-115, irreg A-activity
== END 2021-08-17 08:19 | disposition home or self-care (01) ==
LOC: DI.CM 08:19
PROVIDERS: PCP Nurse Practitioner Family; Visit Provider Nurse Practitioner Family
DX: R07.9 Chest pain, unspecified (principal)
CPT/HCPCS: 93010

== ENCOUNTER 2021-08-17 08:39 | Emergency (ER) | payer MEDICAID, SELFPAY ==
[2021-08-17] VITALS (14 sets, daily range): BP systolic 154–183; BP diastolic 79–122; PULSE 71–154; RESP 10–22; TEMP 36.6–36.8; O2SAT 95–96
--- NOTE | 2021-08-17 08:30 | RT.EKG_ITS ---
APPROVED REPORT Exam: Resting ECG Reason for Exam: chest pain Patient Location: E HR:141 bpm ECG Measurements Heart Rate 141 AXIS MN [id number] P [id number] QRSd 87 QRS 4 QT 290 T 34 QTc 445 Conclusion Atrial fibrillation...V-rate 117-181, irreg A-activity
--- NOTE | 2021-08-17 08:54 | ED.GENADUL_ITS ---
Discharge Plan Disposition Patient Disposition: AGAINST MEDICAL ADVICE Condition: Serious Discharge Details Clinical Impression: Atrial fibrillation with rapid ventricular response, Hypertension, Acute chest pain Primary Care Provider: Jeronimo Workman ED Provider: Zainab Jacob Home Meds and New Rx's Prescriptions: New diltiazem HCl 120 mg capsule,extended release 24 hr 120 mg PO DAILY Qty: 14 0RF Continued lisinopril 20 mg tablet 20 mg PO DAILY Qty: 30 0RF Rx Instructions: take 20mg daily acetaminophen [Tylenol Extra Strength] 500 mg tablet 500 mg PO Q6H PRN0RF atorvastatin 10 mg tablet 10 mg PO QPM Qty: 90 3RF omeprazole 20 mg tablet,delayed release (DR/EC) 20 mg PO DAILY Qty: 90 3RF ibuprofen 200 mg Tablet 600 mg PO Q6H PRN0RF Discharge Instructions Instructions: A-fib (Atrial Fibrillation) (ED), Chest Pain (ED), Hypertension (ED) Additional Instructions: You are leaving against our medical recommendation you understand you are at risk for further deterioration and even Begin taking the diltiazem Continue all your additional prescribed medication You will need very close outpatient follow-up cardiology, I have listed a referral Also follow-up with your primary care physician Referrals: Jeronimo Workman, [employer] DEVELOPER [Primary Care Provider] - Mariya Simon MD [[facility] STAFF PHYSICIAN] - Discharge Data Discharge Date/Time-TO BE ENTERED AT DEPARTURE: 08/17/21 12:20 Medical Decision Making <Cuauhtemoc Hill MD - Last Filed: 08/17/21 09:18> [age]-year-old male with history of recently diagnosed hypertension and hyperlipidemia, recently initiated treatment, was being seen at PCP office for follow-up and developed chest pain with associated diaphoresis and nausea. Patient has ongoing mild to moderate chest discomfort with associated palpitations. court recording monitor was reviewed by me and reveals atrial fibrillation with rapid ventricular response. EKG was reviewed and interpreted by me: Please see report, no STEMI, A. fib with RVR, 141 bpm. Will check troponin. Consider pulmonary embolism. Patient has no hypoxia, no leg swelling or calf tenderness. I will check D-dimer. Plan to give diltiazem 15 mg IV push and start infusion. <NEHEMIAH Calderon - Last Filed: 08/17/21 19:24> [age]-year-old male with history of recently diagnosed hypertension and hyperlipidemia, recently initiated treatment, was being seen at PCP office for follow-up and developed chest pain with associated diaphoresis and nausea. Patient has ongoing mild to moderate chest discomfort with associated palpitations. court recording monitor was reviewed by me and reveals atrial fibrillation with rapid ventricular response. EKG was reviewed and interpreted by me: Please see report, no STEMI, A. fib with RVR, 141 bpm. Will check troponin. Consider pulmonary embolism. Patient has no hypoxia, no leg swelling or calf tenderness. I will check D-dimer. Plan to give diltiazem 15 mg IV push and start infusion. 930 am care accepted in transfer, LAB Initial troponin negative, after 50 mg bolus, patient feeling marked improvement, chest pain is resolved, shortness of breath has resolved Chest x-ray shows no evidence of acute abnormality per radiology interpretation Patient given 120 mg of extended release Cardizem added bnp with 1+ peripheral edema and shortness of breath, 700 Pulse of 84 at time of reassessment At approximately 9:50 AM, patient is presenting in the 120s again, infusion started at 5 mg/h with plan for admission pending second troponin second troponin negative and repeat ekg without ischemia discussed admission with patient and he is now declining admission to hospital aware of risk of stroke, chf, LA, and further deteoriation and even . Pt has declined and is of decisional capacity He is aware of the risks associated with his decision His [id number] score is 1, I will not initiate anticoagulation therapy at this time Follow-up appointment request has been placed with cardiology and repeat assess ment with PCP Discharged home with prescription for extended release Cardizem 120 mg Remains in atrial fibrillation although rate slightly slowed at time of discharge home, patient remains hypotensive His mentation remains intact throughout this evaluation HPI <Cuauhtemoc Hill MD - Last Filed: 08/17/21 09:18> General Mode of arrival: ambulatory . Date/Time Provider Initiated Documentation: 08/17/21 08:40 . Limitations to Documentation: no limitations . Information obtained by: patient and RN/MD . HPI Narrative: 60-year-old male with history of hypertension, hyperlipidemia, GERD, sent from primary care physician office with chest pain. Patient notes pain started this morning at PCP office. Pain localized to left chest with radiation to his left shoulder. Pain is moderate with no modifiers. Patient notes he feels like his heart is beating fast and he can feel his heart beating in his chest and his back. He has associated nausea and sweating. Denies abdominal pain. Patient notes he has had similar intermittent feeling of rapid heartbeat in the past that was never this persistent or severe. He denies leg swelling or calf pain. Related Data Home Medications Medication Instructions Recorded Confirmed ibuprofen 200 mg tablet 600 mg PO Q6H PRN 06/22/19 08/17/21 acetaminophen 500 mg tablet 500 mg PO Q6H PRN 08/18/20 08/17/21 (Tylenol Extra Strength) atorvastatin 10 mg tablet 10 mg PO QPM #90 tab 08/03/21 08/17/21 omeprazole 20 mg tablet,delayed 20 mg PO DAILY #90 tab 08/03/21 08/17/21 release diltiazem HCl 120 mg capsule,24 120 mg PO DAILY #14 cap 08/17/21 hr,extended release lisinopril 20 mg tablet 20 mg PO DAILY #30 tab 08/17/21 08/17/21 Previous Rx's Medication Instructions Recorded atorvastatin 10 mg tablet 10 mg PO QPM #90 tab 08/03/21 omeprazole 20 mg tablet,delayed 20 mg PO DAILY #90 tab 08/03/21 release diltiazem HCl 120 mg capsule,24 120 mg PO DAILY #14 cap 08/17/21 hr,extended release lisinopril 20 mg tablet 20 mg PO DAILY #30 tab 08/17/21 Allergies Allergy/AdvReac Type Severity Reaction Status Date / Time aspirin Allergy Intermediate Hives Verified 08/17/21 08:56 General MARIE: 4 Review of Systems <Cuauhtemoc Hill MD - Last Filed: 08/17/21 09:18> All systems reviewed & are unremarkable except as noted in HPI and below Constitutional Constitutional: Denies fever(s) Cardiovascular Cardiovascular: Reports as per HPI Respiratory Respiratory: Denies cough PFSH <Cuauhtemoc Hill MD - Last Filed: 08/17/21 09:18> All Active Problems (Updated 08/17/21 @ 09:07 by Cuauhtemoc Hill MD) Atrial fibrillation with rapid ventricular response (Acute) Hypertension (Chronic) Acute chest pain (Acute) Chest pain (Acute) Prediabetes (Acute) Hyperlipidemia (Acute) GERD (gastroesophageal reflux disease) (Chronic) Hypertension (Chronic) Alcoholism (Acute) Obesity (Chronic) ED (erectile dysfunction) (Acute) Allergic rhinitis (Acute) Surgical History H/O umbilical hernia repair (~1996) Hx of appendectomy S/P cataract surgery Oculus Sinister S/P lobectomy of lung Family History Mother No problems noted. Father , 80's No problems noted. Sister No problems noted. Sister No problems noted. Maternal Grandfather No problems noted. Paternal Grandfather No problems noted. Maternal Grandmother No problems noted. Paternal Grandmother No problems noted. Social History Smoking/Tobacco Use Status: Never Second Hand Exposure: Yes Smoking risk assessment performed?: Yes Alcohol Intake: current Alcohol Intake frequency: a few times a week Alcohol type: beer Drug use: Never Substance use type: does not use Caregiver/Support person: No Household members: none Housing: apartment Communication Needs: None Do you need help understanding health information?: Never Pets and animals: Yes Pets and animals: dog(s) Sexually active: Yes Do you think of yourself as: lesbian/rincon/homosexual Current gender identity: male What is your relationship status?: never How often do you talk on the phone with friends or family?: three or more times per week How often do you get together with friends or relatives?: once per week How often do you attend scientologist or mandaen services?: decline to answer Do you belong to any clubs or organized social groups?: no Panel score (0-1 are the most socially isolated patients): 1 What type of physical activity do you participate in: none Seatbelt use: always Helmet use: No Drive intox or ride w/intox 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 Do you feel safe at home: Yes Do you feel safe in your relationship?: Yes Exam <Cuauhtemoc Hill MD - Last Filed: 08/17/21 09:18> Const General: cooperative and no acute distress HENMT Mouth: moist mucous membranes Eyes Conjunctivae: normal conjunctivae Sclera: normal sclerae EOM: EOM intact bilaterally Neck Neck: trachea midline and supple Resp Auscultation: clear to auscultation bilaterally, no rales, no rhonchi and no wheezes Cardio Rate: regular rate and not tachycardic Rhythm: regular rhythm GI Palpation: soft, not firm, no guarding, no masses, not rigid and nontender Skin General skin exam: no rashes or lesions noted Neuro General: patient alert, patient awake, patient oriented x3 and tone normal Extrem General: no calf tenderness and no edema Psych Appearance: grossly normal Mental Status: mental status grossly normal Critical Care Time <Cuauhtemoc Hill MD - Last Filed: 08/17/21 09:18> Critical Care Time Critical Care Time: Yes Total Critical Care Time: 36 Attestation: I spent greater than 35 minutes addressing this patient's immediate life threats. Please see MDM section of note. This time was spent engaged in work directly related to the patient's care, exclusive of separate procedures, and failure to initiate these interventions would have likely resulted in clinically significant or life threatening deterioration in the patient's condition.
[2021-08-17] MEDS: dilTIAZem 25 MG/5 ML VIAL 15 MG IVP (09:10)
[2021-08-17 09:12] LABS: Abs Immature Grans 0.06 10^3/uL (0.0-0.06); Absolute Basophil Count 0.08 10^3/uL (0.0-0.2); Absolute Monocyte Count 0.63 10^3/uL (0.1-0.8); Absolute Neutrophil Count 6.19 10^3/uL (1.2-6.7); Basophils % 0.8; Eosinophils % 1.9; HCT 45.1 % (40.0-50.0); HGB 15.3 g/dL (13.5-17.5); Immature Grans % 0.6; Lymphocytes % 30.9; MCH 32.3 pg (27.0-33.0); MCHC 33.9 % (32.0-36.0); MCV 95 fL (80-95); MPV 10.7 fL (8.0-11.0); Monocytes % 6.1; Neutrophils % 59.7; Platelet Count 260 10^3/uL (130-400); RBC 4.74 10^6/uL (4.36-5.78); RDW 11.9 % (11.8-14.1); RDW-SD 41.6 fL; WBC 10.36 10^3/uL (4.4-10.8)
--- NOTE | 2021-08-17 09:15 | DI.RAD_ITS ---
Exam(s) XR PORTABLE CHEST AP EXAM: XR PORTABLE CHEST AP CLINICAL HISTORY: chest pain. TECHNIQUE: 2D digital imaging was performed. COMPARISON: CR CHEST 2 VIEWS PA,LAT from 05/08/2014 FINDINGS: LUNGS: Clear. No pleural abnormality seen. HEART: Normal. MEDIASTINUM: Normal. OTHER FINDINGS: None. IMPRESSION: No acute pulmonary findings. DATA REPOSITORY: RADIATION DOSE DELIVERED: Total DLP
[2021-08-17 09:33] LABS: ALT 67 U/L (16-63); AST 50 U/L (15-37); Albumin 3.6 g/dL (3.4-5.0); Alkaline Phosphatase 89 U/L (46-116); Anion Gap 7.3 mmol/L (3-11); BUN 13 mg/dL (7-18); Bilirubin, Total 0.9 mg/dL (0.2-1.0); CO2 26.7 mmol/L (21.0-32.0); CREATININE 1.2 mg/dL (0.70-1.30); Calcium 8.8 mg/dL (8.5-10.1); Chloride 105 mmol/L (98-107); Glucose 123 mg/dL (74-106); Potassium 4.4 mmol/L (3.5-5.1); Sodium 139 mmol/L (136-145); Total Protein 7.8 g/dL (6.4-8.2); Troponin I < 50 ng/L (<or=60)
[2021-08-17] MEDS: dilTIAZem CD 120 MG CAPCR PO (09:40)
[2021-08-17 09:51] LABS: D-Dimer 575 ng/mlFEU (<500)
[2021-08-17] MEDS: dilTIAZem 125 MG in Normal Saline 100 ML IV (09:53)
[2021-08-17 10:06] LABS: Magnesium 2.3 mg/dL (1.8-2.4); NT-proBNP 787 pg/mL (<300)
[2021-08-17 10:08] LABS: Source Nasal/Nares
[2021-08-17 10:33] LABS: Bilirubin Negative (Negative); Blood Negative (Negative); Clarity Clear (Clear); Glucose Negative (Negative); Ketones Negative (Negative); Leukocyte Esterase Negative (Negative); Nitrite Negative (Negative); Specific Gravity 1.015 (1.005-1.025); Urobilinogen 0.2 EU/dL (Up TO 0.2); pH 6.5 (5-8)
--- NOTE | 2021-08-17 10:45 | RT.EKG_ITS ---
APPROVED REPORT Exam: Resting ECG Reason for Exam: chest pain, afib Patient Location: E HR:131 bpm ECG Measurements Heart Rate 131 AXIS WA [id number] P [id number] QRSd 84 QRS 12 QT 316 T 2 QTc 468 Conclusion Atrial fibrillation...V-rate 107-156, irreg A-activity Ventricular premature complex...V complex w/ short R-R interval. Afib. PVCs. No STEMI. I have reviewed and interpreted ECG and agree with software generated interpretation.
[2021-08-17 11:21] LABS: Troponin I < 50 ng/L (<or=60)
[2021-08-17 14:10] LABS: COVID-19 PCR Negative (Negative)
== END 2021-08-17 12:20 | disposition left against medical advice (07) ==
PROVIDERS: Student in an Organized Health Care Education/Training Program; Emergency Provider Physician Assistant; PCP Nurse Practitioner Family
DX: I48.91 Unspecified atrial fibrillation (principal); I10 Essential (primary) hypertension; R07.9 Chest pain, unspecified; R06.02 Shortness of breath; Z20.822 Contact with and (suspected) exposure to COVID-19; Z53.29 Procedure and treatment not carried out because of patient's decision for other reasons; I95.9 Hypotension, unspecified
CPT/HCPCS: 36415; 80053; 87635; 93005; 96365; 96376; 99291; 71045; 81003; 83735; 83880; 84443; 84484; 85025; 85379; 93010

== ENCOUNTER 2021-08-22 00:42 | Outpatient (CLI) | payer MEDICAID, SELFPAY ==
--- NOTE | 2021-08-22 13:51 | DI.US_ITS ---
APPROVED REPORT EXAM: Comprehensive 2D, Doppler, and color-flow Echocardiogram Patient Location: Out-Patient Refractive Surgeon: Ronda Lobato RDCS (AE) Indications: Acute onset A Fib, Chest pain, High risk CVD Other Information Study Quality: Adequate Conclusion Normal left ventricular wall thickness and chamber size. Estimated ejection fraction is 55 to 60%. There are no segmental wall motion abnormalities Normal right ventricular size and systolic function Both atria are normal in size Aortic valve is trileaflet and mildly calcified. There is mild aortic regurgitation. There is no ao rtic stenosis Mild mitral annular calcification. Trace mitral regurgitation Normal tricuspid valve with mild regurgitation. Estimated right ventricular systolic pressure is 32 mmHg Wall motion Left Ventricle The left ventricle is normal size. The left ventricular systolic function is normal. The left ventric ular ejection fraction is within the normal range. There is normal left ventricular wall thickness. T here is normal LV segmental wall motion. There is no ventricular septal defect visualized. LVEF is 58 %. Right Ventricle The right ventricle is normal size. The right ventricular systolic function is normal. The RVSP is 31 .9 mmHg. Atria The left atrium size is normal. The right atrium size is normal. The interatrial septum is intact wit h no evidence for an atrial septal defect. Aortic Valve Aortic valve is mildly calcified. Aortic valve is trileaflet. No hemodynamically significant valvular aortic stenosis. Mild aortic regurgitation. Mitral Valve Mild mitral annular calcification. No evidence of mitral valve stenosis. Trace mitral regurgitation. Tricuspid Valve The tricuspid valve is normal in structure. There is no tricuspid valve stenosis. Mild tricuspid regu rgitation. Pulmonic Valve The pulmonary valve is normal in structure. There is no pulmonic valvular stenosis. Trace pulmonic re gurgitation. Great Vessels The aortic root is normal in size. The ascending aorta is normal in size. Aortic arch is normal in ca liber. IVC is normal in size and collapses >50% with inspiration. Pericardium There is no pericardial effusion. 2D Dimensions IVSD d PLAX 1.06 cm M: 0.6-1.2 LV Vol A2C d MOD 123.1 mL LVPW d PLAX 1.08 cm M: 0.6 - 1.2 LV Vol A4C d MOD 137.2 mL LVID d PLAX 4.87 cm M: 4.2 - 5.8 LA vol/ BSA A2C s A-L 32.9 mL/m2 LVDs 3.35 cm M: 2.5 - 4.0 LA vol/ BSA A4C s A-L 22.7 mL/m2 Ao Root d 3.44 cm M: 3.1 - 3.7 LA Vol/ BSA Biplane s A-L 29.6 mL/m2 RA Area A4C 19.27 cm2 LA Area A4C s MOD 18.39 cm2 RA Vol/ BSA A4C s A-L 23.0 mL/m2 LA Area A2C s MOD 23.99 cm2 Ao Asc Diam d 3.48 cm M: 2.6 - 3.4 LV EF A4C MOD 58.2 % LV EF Teichholz 58.0 % LV EF A2C MOD 57.2 % LVEF (Coffey's) 57.61 % M: 52 - 72 LV EF Biplane MOD 57.6 % LV Volume 93.14 mL M: 62 - 150 SV 75.35 mL LV Volume Index 39.63 mL/m2 M: 34 - 74 SV Index 31.96 mL/m2 LV Vol Biplane MOD 130.8 mL FS 30.65 % M-Mode TAPSE 2.35 cm (M/F) >1.7 LV Diastology MV E' medial 0.163 (>0.07 m/s) MV E Vmax 0.91 (0.4-1.3 m/s) LV E/e MED 5.55 (<14) MV E' lateral 0.148 (>0.1 m/s) LV E/e LAT 6.10 (<14) MV E/E' medial 5.58 MV E/E' lateral 6.13 Aortic Valve LVOT Area 3.32 cm2 AoV Area Vmax 1.93 cm2 LVOT Vmax 1.31 m/s AoV Area/ BSA (Vmax) 0.82 cm2/m2 LVOT Mean Osbaldo. 0.93 m/s RUTHY Mean Osbaldo. 1.97 cm2 LVOT Peak Grad 6.9 mmHg RUTHY Mean Osbaldo. Index 0.83 cm2/m2 LVOT Mean Grad 4.0 mmHg AR DT 2555 msec LVOT VTI 0.228 m AR PHT 741 msec LVOT Diam s 2.05 cm AoV Vmax 2.25 m/s Velocity Ratio 0.58 AoV Mean Osbaldo. 1.57 m/s AoV Peak Grad 20.2 mmHg LVOT SV 75.73 mL AoV Mean Grad 11.2 mmHg AoV VTI 0.378 m AoV Area VTI 2.00 cm2 AoV Area/ BSA (VTI) 0.85 cm/m2 Mitral Valve MV DT 232 (160-240 msec) MV PHT 67 msec MV Area PHT 3.27 cm2 MV VTI 0.243 m MV Area VTI 3.11 (4.0-6.0 cm2) Pulmonary Valve PV Vmax 1.52 (0.5-1.5 m/s) RVOT Peak Gr. 3.48 mmHg PV Peak Grad 9.2 mmHg RVOT Mean Gr. 2.50 mmHg PV Mean Grad 4.3 mmHg RVOT VTI 0.152 m PV VTI 0.233 m RVOT Vmax 0.93 m/s Tricuspid Valve TR Peak Grad 28.9 mmHg TR Vmax 2.69 m/s RA Pressure 3.00 mmHg RVSP (TR) 31.9 mmHg
== END 2021-08-22 01:02 ==
PROVIDERS: PCP Nurse Practitioner Family; Visit Provider Nurse Practitioner Family
DX: R07.89 Other chest pain (principal)
CPT/HCPCS: 93306

== ENCOUNTER 2021-10-05 16:03 | Emergency (ER) | payer MEDICAID, SELFPAY ==
[2021-10-05 16:08] VITALS: BP 155/92; PULSE 85; RESP 18; TEMP 36.6; O2SAT 98
--- NOTE | 2021-10-05 16:45 | DI.RAD_ITS ---
Exam(s) XR FOREARM RT XR ELBOW RT LIMITED XR HUMERUS RT EXAM: XR HUMERUS RT, XR forearm RT, and XR elbow RT limited CLINICAL HISTORY: fall down embankment, r/o fx. TECHNIQUE: 2D digital imaging was performed of the right humerus. Six images were obtained. AP and lateral views were obtained. COMPARISON: No previous for comparison. FINDINGS: BONES: No acute fracture is present. No bony destructive lesion is seen. Visualized portion of elbow and shoulder joints are unremarkable. SOFT TISSUE: Normal. IMPRESSION: No acute fracture or dislocation. DATA REPOSITORY: RADIATION DOSE DELIVERED:
--- NOTE | 2021-10-05 16:45 | DI.RAD_ITS ---
Exam(s) XR HAND RT COMPLETE EXAM: XR HAND RT COMPLETE CLINICAL HISTORY: fall onto R hand, r/o fx. TECHNIQUE: 2D digital imaging was performed of the right hand. Three images were obtained. AP, late ral and oblique views were obtained. COMPARISON: No exams were available for comparison FINDINGS: BONES: No acute fracture is present. No bony destructive lesion is seen. There are chronic deformitie s involving the distal phalanges of the 3rd and 4th fingers. JOINTS: No dislocation present. SOFT TISSUE: Normal. IMPRESSION: No acute fracture or dislocation. DATA REPOSITORY: RADIATION DOSE DELIVERED:
--- NOTE | 2021-10-05 16:48 | ED.GENADUL_ITS ---
Discharge Plan Disposition Patient Disposition: HOME Condition: Stable Discharge Details Clinical Impression: Sprain of right upper arm, Sprain of right elbow Primary Care Provider: Jeronimo Workman ED Provider: Yvonne Dee Home Meds and New Rx's Prescriptions: Continued acetaminophen [Tylenol Extra Strength] 500 mg tablet 500 mg PO Q6H PRN atorvastatin 10 mg tablet 10 mg PO QPM Qty: 90 3RF omeprazole 20 mg tablet,delayed release (DR/EC) 20 mg PO DAILY Qty: 90 3RF diltiazem HCl 240 mg capsule,extended release 24 hr 240 mg PO DAILY Qty: 90 3RF lisinopril 30 mg tablet 30 mg PO DAILY Qty: 90 3RF Rx Instructions: take 30mg daily ibuprofen 200 mg Tablet 600 mg PO Q6H PRN Discharge Instructions Instructions: Elbow Sprain (ED) Additional Instructions: Your x-rays today were negative for any acute findings. You are being placed in a sling to wear for comfort as much as needed and possible. Rest, ice, and elevate the affected area as much as possible. Alternate tylenol and motrin as needed and directed for pain. Follow-up with your primary care doctor in 1 week and for referral to orthopedics for reevaluation if needed. Return to the emergency department with any worsening or new concerning symptoms. Referrals: Edward Waters MD [ [facility] STAFF PHYSICIAN] - Discharge Data Discharge Physician: Yvonne Dee Medical Decision Making 61-year-old male presents with right arm pain extending from his humerus down to his hand after fall down embankment onto his right arm prior to arrival. Patient is alert and oriented x3 and appears clinically sober. He answers questions appropriately. He is able to ambulate back to the ED room with a normal gait. No evidence of head trauma. Denies any complaint of chest, abdominal, neck or back trauma. He has tenderness extending from his right mid upper arm down to his right hand. There is no obvious evidence of trauma but he has limited range of motion due to pain. He is otherwise neurovascularly intact. Pt given a dose of tylenol and ibuprofen and referred for xrays. X-rays unremarkable. Patient placed in sling. Discussed with patient that if there was a potential radial head fracture, treatment would be sling. Patient advised to follow-up with his primary care doctor and for referral to orthopedics if indicated. Usual and customary return precautions given prior to discharge. Medical Records Medical records reviewed: Yes I reviewed the patient's medical records. Imaging Data Radiologic Study: Radiologist's impression: XR Right Forearm Exam date and time: 10/05/2021 5:14 PM Age: 61 years old Clinical indication: Injury or trauma; Fall; Blunt trauma (contusions or hematomas); Arm, lower; Right TECHNIQUE: Imaging protocol: Radiologic exam of the Right forearm. Views: 2 views. COMPARISON: No relevant images were readily available for comparison purposes. FINDINGS: Bones/joints: No acute fracture or dislocation. Soft tissues: Unremarkable. IMPRESSION: No acute fracture or dislocation. XR Right Humerus Exam date and time: 10/05/2021 5:10 PM Age: 61 years old Clinical indication: Injury or trauma; Fall; Blunt trauma (contusions or hematomas); Arm, upper; Right TECHNIQUE: Imaging protocol: Radiologic exam of the Right humerus. Views: 2 or more views. COMPARISON: CR XR PORTABLE CHEST AP 08/17/2021 9:32 AM FINDINGS: Bones/joints: No acute fracture or dislocation. Soft tissues: Unremarkable. IMPRESSION: No acute fracture of dislocation. XR Right Hand Exam date and time: 10/05/2021 5:16 PM Age: 61 years old Clinical indication: Injury or trauma; Fall; Blunt trauma (contusions or hematomas); Hand; Right TECHNIQUE: Imaging protocol: Radiologic exam of the Right hand. Views: 3 or more views. COMPARISON: CR XR FOREARM RT 10/05/2021 5:14 PM FINDINGS: Bones/joints: Chronic appearing deformities of the 3rd and 4th distal phalanges. No acute fracture or dislocation. Soft tissues: Unremarkable. IMPRESSION: No acute fracture or dislocation. XR Right Elbow Exam date and time: 10/05/2021 5:31 PM Age: 61 years old Clinical indication: Pain; Elbow; Right; Patient HX: Fall onto R arm, R/O FX TECHNIQUE: Imaging protocol: Radiologic exam of the Right elbow. Views: 1 or 2 views. COMPARISON: CR XR HAND RT COMPLETE 10/05/2021 5:16 PM FINDINGS: Bones/joints: No acute fracture or dislocation. Soft tissues: Unremarkable. IMPRESSION: No acute fracture or dislocation. HPI General Mode of arrival: ambulatory . Date/Time Provider Initiated Documentation: 10/05/21 16:40 . Limitations to Documentation: no limitations . Information obtained by: patient . HPI Narrative: Patient is a 60-year-old male who presents with right arm pain after fall down an embankment falling onto his right upper extremity. He denies any head injury, LOC, vomiting, chest pain, abdominal pain, neck pain, back pain or other extremity injury. He has not taken any medication for pain. He states he did drink 6 beers earlier today. Related Data Home Medications Medication Instructions Recorded Confirmed ibuprofen 200 mg tablet 600 mg PO Q6H PRN 06/22/19 10/05/21 acetaminophen 500 mg tablet 500 mg PO Q6H PRN 08/18/20 10/05/21 (Tylenol Extra Strength) atorvastatin 10 mg tablet 10 mg PO QPM #90 tabs 08/03/21 10/05/21 omeprazole 20 mg tablet,delayed 20 mg PO DAILY #90 tabs 08/03/21 10/05/21 release diltiazem HCl 240 mg capsule,24 240 mg PO DAILY #90 caps 08/25/21 10/05/21 hr,extended release lisinopril 30 mg tablet 30 mg PO DAILY #90 tabs 09/28/21 10/05/21 Previous Rx's Medication Instructions Recorded atorvastatin 10 mg tablet 10 mg PO QPM #90 tabs 08/03/21 omeprazole 20 mg tablet,delayed 20 mg PO DAILY #90 tabs 08/03/21 release diltiazem HCl 240 mg capsule,24 240 mg PO DAILY #90 caps 08/25/21 hr,extended release lisinopril 30 mg tablet 30 mg PO DAILY #90 tabs 09/28/21 Allergies Allergy/AdvReac Type Severity Reaction Status Date / Time aspirin Allergy Intermediate Hives Verified 10/05/21 16:12 General Stated Complaint: Orthopedic MARIE: 3 Review of Systems All systems reviewed & are unremarkable except as noted in HPI and below Constitutional Constitutional: Reports as per HPI, Denies chills, Denies excessive sweating, Denies fatigue and Denies fever(s) Eyes Eyes: Denies blurry vision ENT Ears, Nose, Mouth, and Throat: Denies dizziness, Denies sore throat and Denies throat swelling Cardiovascular Cardiovascular: Denies chest pain and Denies dyspnea Respiratory Respiratory: Denies cough and Denies dyspnea Gastrointestinal Gastrointestinal: Denies abdominal pain, Denies diarrhea and Denies vomiting Genitourinary Genitourinary: Denies hematuria and Denies dysuria Musculoskeletal Musculoskeletal: Denies back pain and Denies numbness Comments: Right arm pain extending from right upper arm down to fingers Integumentary/Breasts Skin/Breast: Denies lesions and Denies rash Neurologic Neurologic: Denies behavioral changes, Denies confusion, Denies dizziness, Denies localized weakness and Denies numbness Psychiatric Psychiatric: Denies behavioral changes, Denies confusion and Denies depression Endocrine Endocrine: Denies excessive sweating and Denies fatigue Hematologic/Lymphatic Hematologic/Lymphatic: Denies easy bruising and Denies lymphadenopathy Allergic/Immunologic Allergic/Immunologic: Denies throat swelling PFSH All Active Problems (Updated 10/05/21 @ 18:45 by Yvonne Dee DO) Sprain of right upper arm (Acute) Sprain of right elbow (Acute) Chest pain (Acute) Obesity (Chronic) ED (erectile dysfunction) (Acute) Allergic rhinitis (Acute) Medical History (Updated 10/05/21 @ 18:45 by Yvonne Dee DO) Alcoholism GERD (gastroesophageal reflux disease) Hyperlipidemia Hypertension Prediabetes Surgical History H/O umbilical hernia repair (~1996) Hx of appendectomy S/P cataract surgery Oculus Sinister S/P lobectomy of lung Family History Mother No problems noted. Father , 80's No problems noted. Sister No problems noted. Sister No problems noted. Maternal Grandfather No problems noted. Paternal Grandfather No problems noted. Maternal Grandmother No problems noted. Paternal Grandmother No problems noted. Social History Smoking/Tobacco Use Status: Never Second Hand Exposure: Yes Smoking risk assessment performed?: Yes Alcohol Intake: current Alcohol Intake frequency: a few times a week Alcohol type: beer Drug use: Never Substance use type: does not use Caregiver/Support person: No Household members: none Housing: apartment Communication Needs: None Do you need help understanding health information?: Never Pets and animals: Yes Pets and animals: dog(s) Sexually active: Yes Do you think of yourself as: lesbian/rincon/homosexual Current gender identity: male What is your relationship status?: never How often do you talk on the phone with friends or family?: three or more times per week How often do you get together with friends or relatives?: once per week How often do you attend bahai or zoroastrianism services?: decline to answer Do you belong to any clubs or organized social groups?: no Panel score (0-1 are the most socially isolated patients): 1 What type of physical activity do you participate in: none Seatbelt use: always Helmet use: No Drive intox or ride w/intox laundry route driver: No Do you feel safe at home: Yes Do you feel safe in your relationship?: Yes Exam Const General: cooperative and no acute distress Orientation: alert, awake and oriented x3 HENMT Head: normal to inspection Ears: hearing grossly normal bilaterally and external ears normal General nose exam: external nose normal Eyes General: appearance normal, both eyes and all related structures Eyelids: eyelids normal Pupils: PERRL EOM: EOM intact bilaterally Neck Neck: normal visual inspection Lymphatic: no lymphadenopathy noted Chest Chest: normal inspection of the chest Resp Effort & Inspection: normal respiratory effort and able to speak in complete sentences Auscultation: clear to auscultation bilaterally Cardio Rate: regular rate Rhythm: regular rhythm GI Inspection: normal to inspection Palpation: soft, not firm, no guarding, no hepatosplenomegaly, no masses and nontender Auscultation: normal bowel sounds Back/Spine/Pelvis Back: no CVA tenderness Skin General skin exam: no rashes or lesions noted Neuro General: patient alert and patient awake Cognition: normal cognition Speech: speech normal Gait: normal gait Motor: muscle tone normal throughout Sensory Exam: no sensory deficits noted Extrem General: normal to inspection and capillary refill normal Other: Right upper extremity: Tenderness to palpation extending from the right mid upper arm along the right elbow, right forearm, right wrist and right hand. Right radial and ulnar pulses intact. Limited range of motion due to pain mostly within the right elbow. There is no obvious deformity. Psych Appearance: grossly normal Mental Status: mental status grossly normal Speech and Movement: speech and movement normal Affect: normal affect Thought Process: normal Course Vital Signs Vital signs: Vital Signs Temperature 97.9 F 10/05/21 16:08 Pulse 85 10/05/21 16:08 Respiratory Rate 18 10/05/21 16:08 Blood Pressure 155/92 H 10/05/21 16:08 Pulse Oximetry 98 10/05/21 16:08 Temperature 97.9 F 10/05/21 16:08 Pulse 85 10/05/21 16:08 Respiratory Rate 18 10/05/21 16:08 Respiratory Effort 10/05/21 16:13 Blood Pressure 155/92 H 10/05/21 16:08 Blood Pressure Position Sitting 10/05/21 16:08 Pulse Oximetry 98 10/05/21 16:08 Oxygen Delivery Method Room Air 10/05/21 16:08 Oxygen Flow Rate 0 10/05/21 16:08 Pain Level 10 10/05/21 16:13 PAWSS Have you Been Recently Intoxicated or Drunk Within the Last 30 days?: Yes Have you Ever Experienced Previous Episodes of Alcohol Withdrawal?: No Have you ever Experienced Withdrawal Seizures?: No Have you ever Experienced Delirium Tremens(DT)s?: No Have you ever undergone Alcohol Rehabilitation Treatment (i.e, inpt ot outpatient treatment programs)?: No Have you ever Experienced Blackouts?: No Have you ever Combined Alcohol with other Downers within the last 90 days?: No Have you ever Combined Alcohol with any other Substance of Abuse during the last 90 days?: No Positive Blood Alcohol level on Presentation? [PCS.BAL]: No Evidence of Increased Autonomic Activity (i.e. HR>120, tremor, sweating, agitation, nausea)?: No Result: 1
[2021-10-05] MEDS: Acetaminophen 325 MG TAB 650 MG PO (16:54)
--- NOTE | 2021-10-05 17:53 | DI.VRAD_ITS ---
PROCEDURE INFORMATION: Exam: XR Right Elbow Exam date and time: 10/05/2021 5:31 PM Age: 61 years old Clinical indication: Pain; Elbow; Right; Patient HX: Fall onto R arm, R/O FX TECHNIQUE: Imaging protocol: Radiologic exam of the Right elbow. Views: 1 or 2 views. COMPARISON: CR XR HAND RT COMPLETE 10/05/2021 5:16 PM FINDINGS: Bones/joints: No acute fracture or dislocation. Soft tissues: Unremarkable. IMPRESSION: No acute fracture or dislocation. Dictated and Authenticated by: Wayne Hodgson MD. Ordering:RAJI Russell MD
--- NOTE | 2021-10-05 17:54 | DI.VRAD_ITS ---
PROCEDURE INFORMATION: Exam: XR Right Hand Exam date and time: 10/05/2021 5:16 PM Age: 61 years old Clinical indication: Injury or trauma; Fall; Blunt trauma (contusions or hematomas); Hand; Right TECHNIQUE: Imaging protocol: Radiologic exam of the Right hand. Views: 3 or more views. COMPARISON: CR XR FOREARM RT 10/05/2021 5:14 PM FINDINGS: Bones/joints: Chronic appearing deformities of the 3rd and 4th distal phalanges. No acute fracture or dislocation. Soft tissues: Unremarkable. IMPRESSION: No acute fracture or dislocation. Dictated and Authenticated by: Wayne Hodgson MD. Ordering:RAJI Russell MD
--- NOTE | 2021-10-05 17:55 | DI.VRAD_ITS ---
PROCEDURE INFORMATION: Exam: XR Right Humerus Exam date and time: 10/05/2021 5:10 PM Age: 61 years old Clinical indication: Injury or trauma; Fall; Blunt trauma (contusions or hematomas); Arm, upper; Right TECHNIQUE: Imaging protocol: Radiologic exam of the Right humerus. Views: 2 or more views. COMPARISON: CR XR PORTABLE CHEST AP 08/17/2021 9:32 AM FINDINGS: Bones/joints: No acute fracture or dislocation. Soft tissues: Unremarkable. IMPRESSION: No acute fracture of dislocation. Dictated and Authenticated by: Wayne Hodgson MD. Ordering:RAJI Russell MD
--- NOTE | 2021-10-05 17:55 | DI.VRAD_ITS ---
PROCEDURE INFORMATION: Exam: XR Right Forearm Exam date and time: 10/05/2021 5:14 PM Age: 61 years old Clinical indication: Injury or trauma; Fall; Blunt trauma (contusions or hematomas); Arm, lower; Right TECHNIQUE: Imaging protocol: Radiologic exam of the Right forearm. Views: 2 views. COMPARISON: No relevant images were readily available for comparison purposes. FINDINGS: Bones/joints: No acute fracture or dislocation. Soft tissues: Unremarkable. IMPRESSION: No acute fracture or dislocation. Dictated and Authenticated by: Wayne Hodgson MD. Ordering:RAJI Russell MD
[2021-10-05 17:58] VITALS: BP 137/69; PULSE 84; RESP 17; TEMP 36.9; O2SAT 96
[2021-10-05] MEDS: Ibuprofen 600 MG TAB PO (18:10)
[2021-10-05 18:53] VITALS: BP 167/98; PULSE 85; TEMP 36.8; O2SAT 95
== END 2021-10-05 19:01 | disposition home or self-care (01) ==
PROVIDERS: Emergency Provider Physician Assistant; PCP Nurse Practitioner Family
DX: S43.491A Other sprain of right shoulder joint, initial encounter (principal); S53.491A Other sprain of right elbow, initial encounter; W17.81XA Fall down embankment (hill), initial encounter
CPT/HCPCS: 29105; 99284; 73060; 73070; 73090; 73130; 99283

== ENCOUNTER 2021-10-06 08:56 | Outpatient (CLI) | payer MEDICAID, SELFPAY ==
--- NOTE | 2021-10-06 08:45 | RT.EKG_ITS ---
APPROVED REPORT Exam: Resting ECG Reason for Exam: New Patient Cardio Referral from [facility] for AFIB, Patient Location: O HR:69 bpm ECG Measurements Heart Rate 69 AXIS LA 167 P 31 QRSd 90 QRS 1 QT 396 T 13 QTc 425 Conclusion Sinus rhythm...normal P axis, V-rate 50- 99 Normal Electrocardiogram
== END 2021-10-06 08:57 | disposition home or self-care (01) ==
LOC: DI.CARD 08:59
PROVIDERS: PCP Nurse Practitioner Family; Visit Provider Internal Medicine Cardiovascular Disease
DX: R07.9 Chest pain, unspecified (principal)
CPT/HCPCS: 93010

== ENCOUNTER → 2021-11-09 01:38 | Outpatient (CLI) | payer MEDICAID, SELFPAY ==
--- NOTE | 2021-11-09 07:00 | DI.NM_ITS ---
APPROVED REPORT Exam: Pharmacologic Patient Location: In-Patient Room/Bed: Stress Nurse: Marquita Jefferson RN Ordering Provider:ELGIN HAN, Contact Number: [phone] BMI: 36.25 Baseline Rhythm: Atrial Fibrillation Indications: Chest pain. SOB. Medical History Medical History: Paroxsysmal afib. SOB. CP. Alcoholism. ED. GERD. HTN. HLD. Pre diabetes. Cardiac Medications: Diltiazem. Lisinopril. Atrovastatin. Omeprazole. Allergies: Aspirin. Cardiac Risk Factors: Family hx. HTN. Pre-diabetes. HLD. Obesity. Previous Cardiac Procedures: none Pretest Chest Pain Characteristics: none. Exercise History: Indeterminate Physical Disabilities: none Lung Sounds: Clear to auscultation Heart Sounds: Irregular, Tachycardia Stress Test Details Test: Pharmacologic stress was paired with low level exercise. Reason for pharmacologic stress test: Elevated resting heart rates due to atrial fib.. Nuclear Acquisition: Rest Tc-99m/Stress Tc-99m 1 day Rest Isotope: Tc-99m Sestamibi. Dose: 11.0 Date: 11/09/2021 Injection Time: 0855 Stress Isotope: Tc-99m Sestamibi. Dose: 37.0 Date: 11/09/2021 Injection Time: 1025 HR Resting HR Supine: 127 bpm Max Heart Rate (APMHR): 157.433084 bpm Resting HR Standin bpm Target HR (85% APMHR): 133.938821 bpm Max HR Achieved: 164 bpm % of APMHR: 104.46 Recovery HR: 136 bpm Comment: Diltiazem held by pt this am. BP Resting BP Supine: 140/82 mmHg Resting BP Standin/80 mmHg Max BP: 192/70 mmHg Recovery BP: 170/80 mmHg ECG Resting ECG: Atrial Fibrillation Ectopy: PVCs Stress ECG: Atrial Fibrillation ST Change: No significant ST segment changes noted Arrhythmia: VPC's Recovery ECG: Atrial Fibrillation Recovery ST Change: No significant ST segment changes noted Recovery Arrhythmia: VPC Clinical Stress Symptoms: Dyspnea, General Fatigue Exercise duration: 4 min0 sec Rate Pressure Product: [id number] Stress ECG Conclusion 1. Resting electrocardiogram showed atrial fibrillation, left ventricular hypertrophy 2. Patient underwent testing using a combination of low-level exercise and regadenoson 3. Peak heart rate achieved was greater than 100% of predicted for age 4. Electrocardiographic portion of the test did not demonstrate any myocardial ischemia 5. Atrial fibrillation was present throughout, rare PVC 6. See MPI report Stress Test Summary STAGE HR BP SpO2 Symptoms NOTES Supine 127 140/82 Standing 130 152/80 97 1 min post Lexiscan injection 148 192/70 95 Moderate SOB 3 min post Lexiscan injection 146 188/90 95 SOB subsided 6 min post Lexiscan injection 136 170/80 95 Pharmacological stress was paired with low level 4 minutes of walking treadmill ) 0% grade and 1.0 mp h MPI Conclusion Myocardial perfusion is normal. There is no evidence of ischemia or prior infarction EF measured at 41%, wall motion appears normal Radiologist Interpretation Radiologist Interpretation by: iKn Payne MD Interpretation Date/Time: 11/09/2021 16:25:19
[2021-11-09] MEDS: Regadenoson 0.4 MG/5 ML SYR IVP (11:22)
== END ==
PROVIDERS: PCP Nurse Practitioner Family; Visit Provider Internal Medicine Cardiovascular Disease
DX: I48.20 Chronic atrial fibrillation, unspecified (principal); R07.89 Other chest pain
CPT/HCPCS: 78452; 93017; J2785